=== PATIENT | male | born 1990 | race Hispanic/Latino ===

== ENCOUNTER 2018-04-08 16:10 | Emergency (ER) | payer SELFPAY ==
--- NOTE | 2018-04-08 16:50 | RAD REPORT ---
EXAM DESCRIPTION: CT - Stone Protocol - 04/08/2018 4:38 pm CLINICAL HISTORY: Bilateral flank pain, history of kidney stones COMPARISON: None. TECHNIQUE: Axial 5 mm thick images were obtained without oral or IV contrast. The [id number] span s the entirety of the system including uppermost abdomen and lung bases. All CT scans are performed using dose optimization technique as appropriate and may include automated exposure control or mA/KV adjustment according to patient size. FINDINGS: No hydronephrosis is present and no obstructing ureteral calculi. No suspicious renal mass es. Isodense masses and pyelonephritis are not excluded on a stone protocol CT scan. No urinary bladd er suspicious finding. Prostate gland and seminal vesicles are normal range. Imaged portions of the liver, spleen and pancreas show no suspicious findings on non-contrast imaging . No gallbladder or biliary tree abnormality identified. No significant adrenal finding. No suspicious bowel findings. No appendicitis or other acute GI process seen. No hernia, mass or bulky lymphadenopathy noted. No free air, free fluid or inflammatory stranding. No significant bony abnormality. IMPRESSION: Negative noncontrast CT abdomen and pelvis study. Isodense masses and pyelonephritis are not excluded on stone protocol technique.
[2018-04-08 17:06] LABS: Urine Blood NEGATIVE (NEG); Urine Glucose NEGATIVE (NEG); Urine Protein NEGATIVE (NEG); Urine Specific Gravity <1.005 (1.005-1.030)
--- NOTE | 2018-04-08 17:22 | EDPHYS ---
Physician Documentation [facility] Name: Todd Santos Jr Age: 27 yrs Sex: Male : 1990 Arrival Date: 04/08/2018 Time: 16:14 Bed 10 Private MD: ED Physician Pedro De Souza HPI: 04/08 17:36 This 27 yrs old Male presents to ER via Ambulatory with complaints of High snw Blood Pressure, Flank Pain. 17:36 Onset: The symptoms/episode began/occurred 2 week(s) ago, and became persistent. snw Modifying factors: The symptoms are aggravated by activity, movement. Associated signs and symptoms: Pertinent positives: flank pain. Severity of symptoms: At its worst the blood pressure was moderate. The patient has not experienced similar symptoms in the past. The patient has not recently seen a physician, and does not have an established primary care provider. Historical: - Allergies: 16:18 No Known Allergies; bp - Home Meds: 16:18 None [Active]; bp - PMHx: 16:18 None; bp - Immunization history:: Adult Immunizations up to date. - Social history:: Smoking status: Patient/guardian denies using tobacco. - Ebola Screening: : Patient negative for fever greater than or equal to 101.5 degrees Fahrenheit, and additional compatible Ebola Virus Disease symptoms Patient denies exposure to infectious person Patient denies travel to an Ebola-affected area in the 21 days before illness onset No symptoms or risks identified at this time. ROS: 17:35 Constitutional: Negative for fever, chills, and weight loss, Eyes: Negative for injury, snw pain, redness, and discharge, Neck: Negative for injury, pain, and swelling, Cardiovascular: Negative for chest pain, palpitations, and edema, Abdomen/GI: Negative for abdominal pain, nausea, vomiting, diarrhea, and constipation, Back: Negative for injury and pain, left and right flank irritation : Negative for injury, bleeding, discharge, and swelling. 17:35 MS/Extremity: Negative for injury and deformity, Skin: Negative for injury, rash, and discoloration, Neuro: Negative for headache, weakness, numbness, tingling, and seizure, Psych: Negative for depression, anxiety, suicide ideation, homicidal ideation, and hallucinations. 17:35 ENT: Positive for sore throat. 17:35 Respiratory: Positive for shortness of breath, on exertion. Exam: 17:34 Constitutional: This is a well developed, well nourished patient who is awake, alert, snw and in no acute distress. Head/Face: Normocephalic, atraumatic. Eyes: Pupils equal round and reactive to light, extra-ocular motions intact. Lids and lashes normal. Conjunctiva and sclera are non-icteric and not injected. Cornea within normal limits. Periorbital areas with no swelling, redness, or edema. ENT: Nares patent. No nasal discharge, no septal abnormalities noted. Tympanic membranes are normal and external auditory canals are clear. Oropharynx with significant redness, no swelling, or masses, exudates, or evidence of obstruction, uvula midline. Mucous membranes moist. Neck: Trachea midline, no thyromegaly or masses palpated, and no cervical lymphadenopathy. Supple, full range of motion without nuchal rigidity, or vertebral point tenderness. No Meningismus. Chest/axilla: Normal chest wall appearance and motion. Nontender with no deformity. No lesions are appreciated. Cardiovascular: Regular rate and rhythm with a normal S1 and S2. No gallops, murmurs, or rubs. Normal PMI, no JVD. No pulse deficits. Respiratory: Lungs have equal breath sounds bilaterally, clear to auscultation and percussion. No rales, rhonchi or wheezes noted. No increased work of breathing, no retractions or nasal flaring. Abdomen/GI: Soft, non-tender, with normal bowel sounds. No distension or tympany. No guarding or rebound. No evidence of tenderness throughout. Back: No spinal tenderness. No costovertebral tenderness. Full range of motion. Skin: Warm, dry with normal turgor. Normal color with no rashes, no lesions, and no evidence of cellulitis. MS/ Extremity: Pulses equal, no cyanosis. Neurovascular intact. Full, normal range of motion. Neuro: Awake and alert, GCS 15, oriented to person, place, time, and situation. Cranial nerves II-XII grossly intact. Motor strength 5/5 in all extremities. Sensory grossly intact. Cerebellar exam normal. Normal gait. Vital Signs: 16:19 BP 149 / 85; Pulse 77; Resp 16; Temp 97.4; Pulse Ox 99% ; Weight 71.21 kg; Height 5 ft. bp 7 in. (170.18 cm); 17:20 BP 148 / 86; Pulse 80; Resp 18; Pulse Ox 100% on R/A; Pain 0/10; mg2 16:19 Body Mass Index 24.59 (71.21 kg, 170.18 cm) bp MDM: 16:27 Patient medically screened. [facility] 17:31 Data reviewed: vital signs, nurses notes. Data interpreted: Pulse oximetry: on room air snw is 99 %. Interpretation: normal. Counseling: I had a detailed discussion with the patient and/or guardian regarding: the historical points, exam findings, and any diagnostic results supporting the discharge/admit diagnosis, the presence of at least one elevated blood pressure reading (>120/80) during this emergency department visit, lab results, radiology results, the need for outpatient follow up, to return to the emergency department if symptoms worsen or persist or if there are any questions or concerns that arise at home. Special discussion: Based on the history and exam findings, there is no indication for further emergent testing or inpatient evaluation. I discussed with the patient/guardian the need to see the primary care provider for further evaluation of the symptoms. 04/08 16:26 Order name: Urine Culture snw 04/08 16:26 Order name: Stone Protocol CT; Complete Time: 16:57 snw 04/08 16:26 Order name: Urine Culture EDME 04/08 16:26 Order name: Urine Microscopic Only [facility] 04/08 16:53 Order name: Urine Dipstick--Ancillary (enter results); Complete Time: 17:11 bd 04/08 16:26 Order name: Urine Dipstick-Ancillary (obtain specimen); Complete Time: 16:37 snw Administered Medications: 17:26 Drug: Decadron 8 mg Route: PO; mg2 17:35 Follow up: Response: No adverse reaction; Medication administered at discharge. mg2 Disposition: 04/09 07:01 Co-signature as Attending Physician, Pedro De Souza MD I agree with the assessment and [facility] plan of care. Disposition: 04/08/18 17:22 Discharged to Home. Impression: Other seasonal allergic rhinitis, Acute pharyngitis, Essential (primary) hypertension. - Condition is Stable. - Discharge Instructions: Allergies, Adult, Hypertension, Pharyngitis, How to Take Your Blood Pressure, [id number], DASH Eating Plan, Rehydration, Adult, Managing Your Hypertension. - Prescriptions for Prednisone 20 mg Oral Tablet - take 1 tablet by ORAL route once daily for 5 days; 5 tablet. - Medication Reconciliation Form, Thank You Letter, Antibiotic Education, Prescription Opioid Use, Work release form form. - Follow up: Private Physician; When: 1 week; Reason: Recheck today's complaints, Continuance of care, Re-evaluation by your physician. Follow up: Emergency Department; When: As needed; Reason: Worsening of condition. Signatures: Dispatcher [employer] [facility] Pedro De Souza MD MD cha Therrien, Shelly, INFORMATION ENGINEER-C INFORMATION ENGINEER-Csnw Nimesh Daniels, RN RN bp Raymond Richards, JO ANN RN mg2 Corrections: (The following items were deleted from the chart) 04/08 16:29 16:26 UA MICROSCOPIC+U.LAB.BRZ ordered. [facility] 17:37 17:22 04/08/2018 17:22 Discharged to Home. Impression: Other seasonal allergic mg2 rhinitis; Acute pharyngitis; Essential (primary) hypertension. Condition is Stable. Forms are Medication Reconciliation Form, Thank You Letter, Antibiotic Education, Prescription Opioid Use. Follow up: Private Physician; When: 1 week; Reason: Recheck today's complaints, Continuance of care, Re-evaluation by your physician. Follow up: Emergency Department; When: As needed; Reason: Worsening of condition. snw
--- NOTE | 2018-04-08 17:22 | ER ---
Nurse's Notes [facility] Name: Todd Santos Jr Age: 27 yrs Sex: Male : 1990 Arrival Date: 04/08/2018 Time: 16:14 Bed 10 Private MD: Diagnosis: Other seasonal allergic rhinitis;Acute pharyngitis;Essential (primary) hypertension Presentation: 04/08 16:16 Presenting complaint: Patient states: WELL, I'VE BEEN HAVING DIFFERENT SYMPTOMS FOR THE bp LAST TWO WEEKS. FIRST I HAD PRESSURE IN MY EYES, THEN KIDNEY PAIN. THEN TODAY I GOT LIGHT HEADED AND I HAD MY PRESSURE CHECKED AND IT WAS REALLY HIGH. Transition of care: patient was not received from another setting of care. Onset of symptoms is unknown. Risk Assessment: Do you want to hurt yourself or someone else? Patient reports no desire to harm self or others. Initial Sepsis Screen: Does the patient meet any 2 criteria? No. Patient's initial sepsis screen is negative. Does the patient have a suspected source of infection? No. Patient's initial sepsis screen is negative. Care prior to arrival: None. 16:16 Method Of Arrival: Ambulatory bp 16:16 Acuity: MAYA 4 bp Triage Assessment: 16:18 General: Appears in no apparent distress. comfortable, Behavior is cooperative, bp appropriate for age, anxious. Pain: Denies pain. Historical: - Allergies: 16:18 No Known Allergies; bp - Home Meds: 16:18 None [Active]; bp - PMHx: 16:18 None; bp - Immunization history:: Adult Immunizations up to date. - Social history:: Smoking status: Patient/guardian denies using tobacco. - Ebola Screening: : Patient negative for fever greater than or equal to 101.5 degrees Fahrenheit, and additional compatible Ebola Virus Disease symptoms Patient denies exposure to infectious person Patient denies travel to an Ebola-affected area in the 21 days before illness onset No symptoms or risks identified at this time. Screenin:30 Abuse screen: Denies threats or abuse. Denies injuries from another. Nutritional mg2 screening: No deficits noted. Tuberculosis screening: No symptoms or risk factors identified. Fall Risk None identified. Assessment: 16:30 General: Appears in no apparent distress. comfortable, Behavior is calm, cooperative. mg2 Pain: Complains of pain in flank, chedst, eyes Pain does not radiate. Pain currently is 4 out of 10 on a pain scale. Quality of pain is described as aching, Pain began gradually, Is intermittent. Neuro: Level of Consciousness is awake, alert, obeys commands, Oriented to person, place, time, situation. Cardiovascular: Capillary refill < 3 seconds Patient's skin is warm and dry. Respiratory: Airway is patent Respiratory effort is even, unlabored, Respiratory pattern is regular, symmetrical. GI: No signs and/or symptoms were reported involving the gastrointestinal system. : Reports pain flank(s). EENT: Reports eye pain. Derm: Skin is intact, is healthy with good turgor, Skin is pink, warm \T\ dry. normal. Musculoskeletal: No signs and/or symptoms reported regarding the musculoskeletal system. Vital Signs: 16:19 BP 149 / 85; Pulse 77; Resp 16; Temp 97.4; Pulse Ox 99% ; Weight 71.21 kg; Height 5 ft. bp 7 in. (170.18 cm); 17:20 BP 148 / 86; Pulse 80; Resp 18; Pulse Ox 100% on R/A; Pain 0/10; mg2 16:19 Body Mass Index 24.59 (71.21 kg, 170.18 cm) bp ED Course: 16:14 Patient arrived in ED. as 16:17 Triage completed. bp 16:19 Arm band placed on left wrist. bp 16:21 Raymond Richards, RN is Primary Nurse. mg2 16:24 Lisa Gonzalez FNP-C is PHCP. snw 16:24 Pedro De Souza MD is Attending Physician. snw 16:30 No provider procedures requiring assistance completed. mg2 16:32 Patient has correct armband on for positive identification. Pulse ox on. NIBP on. mg2 16:38 CT completed. Patient tolerated procedure well. Patient moved to CT via wheelchair. vr Patient moved back from CT. 16:[address] In Process Unspecified. EDMS 17:36 Patient did not have IV access during this emergency room visit. mg2 Administered Medications: 17:26 Drug: Decadron 8 mg Route: PO; mg2 17:35 Follow up: Response: No adverse reaction; Medication administered at discharge. mg2 Outcome: 17:22 Discharge ordered by . snw 17:36 Discharged to home ambulatory, with family. mg2 17:36 Condition: stable 17:36 Discharge instructions given to patient, family, Instructed on discharge instructions, follow up and referral plans. medication usage, Demonstrated understanding of instructions, follow-up care, medications, Prescriptions given X 1. 17:37 Patient left the ED. mg2 Signatures: Dispatcher [employer] EDMS Lisa Gonzalez, ENVIRONMENTAL PROFESSIONAL-C ENVIRONMENTAL PROFESSIONAL-Csnw Lupis Vines Victoria vr Peltier, Brian, JO ANN RN Raymond Lua RN RN mg2
[2018-04-08] MEDS ORDERED: DEXAMETHASONE 4 MG TAB ONE (17:29)
[2018-04-08 19:20] LABS: Urine Bacteria <20 /HPF (NONE SEEN); Urine Culture Reflex Order NOT NEEDED; Urine RBC <5 /HPF (NONE SEEN)
== END 2018-04-08 17:37 | disposition home or self-care (01) ==
LOC: ER 16:10
DX: J30.2 Other seasonal allergic rhinitis (principal); I10 Essential (primary) hypertension
CPT/HCPCS: 74176; 76377; 81003; 81015; 87086; 87088; 99284

== ENCOUNTER 2018-04-11 16:12 | Emergency (ER) | payer SELFPAY ==
[2018-04-11] MEDS ORDERED: NA CHLORIDE 0.9% 500 ML ONE (17:37)
[2018-04-11] MEDS ORDERED: METOCLOPRAMIDE 10 MG/2mL INJ ONE (17:37)
--- NOTE | 2018-04-11 17:47 | RAD REPORT ---
EXAM DESCRIPTION: RAD - Chest Single View - 04/11/2018 5:39 pm CLINICAL HISTORY: hiccups Chest pain. COMPARISON: CHEST SINGLE VIEW dated 09/03/2015 FINDINGS: Portable technique limits examination quality. The lungs are grossly clear. The heart is normal in size. No displaced fractures. IMPRESSION: No acute intrathoracic process suspected.
[2018-04-11 18:10] LABS: Potassium 3.4 mmol/L (3.5-5.1)
[2018-04-11 18:18] LABS: Absolute Monocytes 1.4 K/uL (0.1-1.3); Absolute Neutrophil 9.1 K/uL (1.8-8.0); Basophils % 0.5 % (0-1.3); Eosinophils % 1.3 % (0-4.4); Hematocrit 48.1 % (39.6-49.0); Lymphocytes % 21.8 % (15.3-44.8); MCH 31.6 pg (27.0-35.0); MPV 8.2 fL (7.6-11.3)
--- NOTE | 2018-04-11 18:50 | ER ---
Nurse's Notes [facility] Name: Todd Santos Jr Age: 27 yrs Sex: Male : 1990 Arrival Date: 04/11/2018 Time: 16:15 Bed 13 Private MD: None, None Diagnosis: Hiccough Presentation: 04/11 16:18 Presenting complaint: Patient states: Hiccoughs for 2 days. Transition of care: patient aj was not received from another setting of care. Onset of symptoms was April 09, 2018. Risk Assessment: Do you want to hurt yourself or someone else? Patient reports no desire to harm self or others. Initial Sepsis Screen: Does the patient meet any 2 criteria? No. Patient's initial sepsis screen is negative. Does the patient have a suspected source of infection? No. Patient's initial sepsis screen is negative. Care prior to arrival: None. 16:18 Method Of Arrival: Ambulatory aj 16:18 Acuity: MAYA 4 aj Triage Assessment: 16:19 General: Appears in no apparent distress. comfortable, Behavior is calm, cooperative, aj appropriate for age. Pain: Denies pain. Neuro: Level of Consciousness is awake, alert, obeys commands, Oriented to person, place, time, situation, Appropriate for age. Respiratory: Airway is patent Respiratory effort is even, unlabored, Respiratory pattern is regular, symmetrical. Derm: Skin is intact, is healthy with good turgor, Skin is pink, warm \T\ dry. normal. Historical: - Allergies: 16:19 No Known Allergies; aj - Home Meds: 16:19 Prednisone Oral [Active]; aj - PMHx: 16:19 None; aj - PSHx: 16:19 None; aj - Immunization history:: Adult Immunizations up to date. - Social history:: Smoking status: Patient/guardian denies using tobacco. - Ebola Screening: : Patient negative for fever greater than or equal to 101.5 degrees Fahrenheit, and additional compatible Ebola Virus Disease symptoms Patient denies exposure to infectious person Patient denies travel to an Ebola-affected area in the 21 days before illness onset No symptoms or risks identified at this time. Screenin:45 Abuse screen: Denies threats or abuse. Denies injuries from another. Nutritional bp screening: No deficits noted. Tuberculosis screening: No symptoms or risk factors identified. Fall Risk None identified. Assessment: 16:46 General: Appears in no apparent distress. comfortable, Behavior is calm, cooperative, bp appropriate for age. Pain: Denies pain. Neuro: Level of Consciousness is awake, alert, obeys commands, Oriented to person, place, time, situation, Appropriate for age. GI: Reports HICCUPS. 18:10 Reassessment: ALL CURRENT STUDIES COMPLETED, NO ACUTE S/S OBSERVED AT THIS TIME. bp 19:06 Reassessment: PT D/C HOME AMBULATORY WITH FAMILY, DX WITH HICCUPS. bp Vital Signs: 16:19 BP 151 / 89; Pulse 80; Resp 18; Temp 98.1; Pulse Ox 99% on R/A; Weight 69.4 kg; Height aj 5 ft. 7 in. (170.18 cm); 18:09 BP 126 / 92; Pulse 73; Resp 14; Pulse Ox 100% ; bp 16:19 Body Mass Index 23.96 (69.40 kg, 170.18 cm) aj ED Course: 16:15 Patient arrived in ED. mr 16:15 None, None is Private Physician. mr 16:19 Triage completed. aj 16:19 Arm band placed on left wrist. Patient placed in waiting room, Patient notified of wait aj time. 16:40 Javy Cowan PA is PHCP. [facility] 16:40 Clay Arzola MD is Attending Physician. [facility] 16:45 Nimesh Daniels, JO ANN is Primary Nurse. bp 16:45 Patient has correct armband on for positive identification. Bed in low position. Call bp light in reach. Side rails up X2. 17:32 Initial lab(s) drawn, by me, sent to lab. Inserted saline lock: 22 gauge in right jb1 antecubital area, using aseptic technique. Blood collected. 17:37 X-ray completed. Portable x-ray completed in exam room. Patient tolerated procedure ml well. 17:38 Chest Single View XRAY In Process Unspecified. EDMS 18:48 Mehran Elder MD is Referral Physician. [facility] 19:06 No provider procedures requiring assistance completed. IV discontinued, intact, bp bleeding controlled, No redness/swelling at site. Pressure dressing applied. Administered Medications: 17:30 Drug: NS 0.9% 500 ml Route: IV; Rate: bolus; Site: right antecubital; bp 17:30 Drug: Reglan 10 mg Route: IVP; Site: right antecubital; bp Outcome: 18:49 Discharge ordered by . zhanna 19:06 Discharged to home ambulatory, with family. bp 19:06 Condition: stable 19:06 Discharge instructions given to patient, Instructed on discharge instructions, follow up and referral plans. medication usage, Demonstrated understanding of instructions, follow-up care, medications, Prescriptions given X 1. 19:06 Patient left the ED. bp Signatures: Dispatcher [employer] EDMS Jose Carlos Epstein jbKayli Appiah, RN RN Javy Swenson PA PA jmm Rivera, Mary mr Geoff, Nimesh Ott, RN RN bp
--- NOTE | 2018-04-11 18:50 | EDPHYS ---
Physician Documentation [facility] Name: Todd Santos Jr Age: 27 yrs Sex: Male : 1990 Arrival Date: 04/11/2018 Time: 16:15 Bed 13 Private MD: None, None ED Physician Clay Arzola HPI: 04/11 16:55 This 27 yrs old Male presents to ER via Ambulatory with complaints of Hiccups jmm x 48 hrs. 16:55 The patient or guardian reports hiccoughs. Onset: The symptoms/episode began/occurred jm acutely. 16:55 Associated signs and symptoms: Pertinent negatives: chest pain, fever. The patient has jmm not experienced similar symptoms in the past. 16:55 This is a 27 year old male with no chronic medical conditions that presents to the ED jmm with hiccups for the past 2 days. Patient was evaluated 3 days prior for flank pain and pharyngitis. Patient complains of burning sensation to his epigastric region radiating up his chest. Patient denies fever. . Historical: - Allergies: 16:19 No Known Allergies; aj - Home Meds: 16:19 Prednisone Oral [Active]; aj - PMHx: 16:19 None; aj - PSHx: 16:19 None; aj - Immunization history:: Adult Immunizations up to date. - Social history:: Smoking status: Patient/guardian denies using tobacco. - Ebola Screening: : Patient negative for fever greater than or equal to 101.5 degrees Fahrenheit, and additional compatible Ebola Virus Disease symptoms Patient denies exposure to infectious person Patient denies travel to an Ebola-affected area in the 21 days before illness onset No symptoms or risks identified at this time. ROS: 16:55 Constitutional: Negative for fever, chills, and weight loss, Cardiovascular: Negative jm for chest pain, palpitations, and edema. 16:55 Back: Negative for injury and pain, MS/Extremity: Negative for injury and deformity, Skin: Negative for injury, rash, and discoloration, Neuro: Negative for headache, weakness, numbness, tingling, and seizure. 16:55 Respiratory: Positive for hiccups. 16:55 Abdomen/GI: Positive for 16:55 All other systems are negative. Exam: 16:55 Constitutional: This is a well developed, well nourished patient who is awake, alert, jmm and in no acute distress. Head/Face: atraumatic. Eyes: EOMI, no conjunctival erythema appreciated ENT: Moist Mucus Membranes Chest/axilla: Normal chest wall appearance and motion. Cardiovascular: Regular rate and rhythm. No edema appreciated 16:55 Back: Normal ROM Skin: General appearance color normal MS/ Extremity: Moves all extremities, no obvious deformities appreciated, no edema noted to the lower extremities Neuro: Awake and alert, normal gait Psych: Behavior is normal, Mood is normal, Patient is cooperative and pleasant 16:55 Respiratory: the patient does not display signs of respiratory distress, Respirations: normal, hiccups appreciated on PE. 16:55 Abdomen/GI: Inspection: abdomen appears normal, Bowel sounds: normal, Palpation: abdomen is soft and non-tender. Vital Signs: 16:19 BP 151 / 89; Pulse 80; Resp 18; Temp 98.1; Pulse Ox 99% on R/A; Weight 69.4 kg; Height aj 5 ft. 7 in. (170.18 cm); 18:09 BP 126 / 92; Pulse 73; Resp 14; Pulse Ox 100% ; bp 16:19 Body Mass Index 23.96 (69.40 kg, 170.18 cm) aj MDM: 16:55 Patient medically screened. [facility] 18:47 Data reviewed: vital signs, nurses notes. Counseling: I had a detailed discussion with zhanna the patient and/or guardian regarding: the historical points, exam findings, and any diagnostic results supporting the discharge/admit diagnosis, lab results, radiology results, the need for outpatient follow up, to return to the emergency department if symptoms worsen or persist or if there are any questions or concerns that arise at home. 18:47 Data reviewed: lab test result(s), radiologic studies, plain films. [facility] 18:47 ED course: After administration of reglan, Hiccups relieved in the ED. Symptoms may be jmm due to underlying gi process. Patient prescribed antacids and advised to follow up with GI for further evaluation. patient otherwise given strict return precautions. patient understood and agrees with the plan of care. . ED course: Previous CT from 3 days prior review. No acute findings. Labs unremarkable. I do not currently suspect an acute process. . 04/11 16:56 Order name: CBC with Diff; Complete Time: 18:47 [facility] 04/11 16:56 Order name: BMP; Complete Time: 18:26 [facility] 04/11 16:56 Order name: Saline Lock; Complete Time: 17:32 [facility] 04/11 16:56 Order name: Chest Single View XRAY; Complete Time: 17:52 [facility] Administered Medications: 17:30 Drug: NS 0.9% 500 ml Route: IV; Rate: bolus; Site: right antecubital; bp 17:30 Drug: Reglan 10 mg Route: IVP; Site: right antecubital; bp Disposition: 04/12 13:18 Co-signature as Attending Physician, Clay Arzola MD I agree with the assessment and kdr plan of care. Disposition: 04/11/18 18:49 Discharged to Home. Impression: Hiccough. - Condition is Stable. - Discharge Instructions: Hiccups. - Prescriptions for Pepcid 20 mg Oral Tablet - take 1 tablet by ORAL route every 12 hours for 10 days; 30 tablet. - Medication Reconciliation Form, Thank You Letter, Antibiotic Education, Prescription Opioid Use form. - Follow up: Mehran Elder MD; When: 2 - 3 days; Reason: Recheck today's complaints, Continuance of care, Re-evaluation by your physician. Signatures: Dispatcher [employer] EDKayli Sweeney, RN RN Clay Pool MD MD kdr Mickail, Joel, PA PA Nmiesh Khan, JO ANN RN bp Corrections: (The following items were deleted from the chart) 04/11 19:06 18:49 04/11/2018 18:49 Discharged to Home. Impression: Hiccough. Condition is Stable. bp Forms are Medication Reconciliation Form, Thank You Letter, Antibiotic Education, Prescription Opioid Use. Follow up: Mehran Elder; When: 2 - 3 days; Reason: Recheck today's complaints, Continuance of care, Re-evaluation by your physician. [facility]
== END 2018-04-11 19:06 | disposition home or self-care (01) ==
LOC: ER 16:12
DX: R06.6 Hiccough (principal)
CPT/HCPCS: 36415; 71045; 80048; 85025; 96374; 99284; J2765